=== PATIENT | male | born 1980 | race Caucasian/White ===

== ENCOUNTER 2016-12-08 01:00 | Emergency (ER) | payer OTHER ==
[2016-12-08 01:32] VITALS: BP 125/76; PULSE 91; RESP 16; TEMP 99.6; O2SAT 98
[2016-12-08] MEDS ORDERED: Sodium Chloride 0.9% 1,000 ML IV STA (02:05)
[2016-12-08 02:23] LABS: BASO % 0.3 % (0.0-2.0); EOS # 0.2 K/uL (0.0-0.7); EOS % 1.4 % (0.0-4.0); HEMATOCRIT 48.3 % (35.0-51.0); LYMPH # 1.8 K/uL (1.0-4.3); LYMPH % 11.8 % (20.0-40.0); MEAN CELL VOLUME 81.1 fl (80.0-94.0); MEAN CORPUSCULAR HEMOGLOBIN 27.2 pg (27.0-31.0); MEAN CORPUSCULAR HGB CONC 33.6 g/dL (33.0-37.0); MEAN PLATELET VOLUME 8.3 fl (7.2-11.7); MONO # 0.8 K/uL (0.0-0.8); MONO % 5.1 % (0.0-10.0); NEUT # 12.1 K/uL (1.8-7.0); NEUT % 81.4 % (50.0-75.0); NRBC % 0.1 % (0.0-0.0); WHITE BLOOD COUNT 14.9 K/uL (4.8-10.8)
[2016-12-08 02:31] LABS: CHLORIDE 102 mmol/L (98-107); SODIUM 141 mmol/l (132-148)
[2016-12-08 02:32] LABS: POTASSIUM 4.1 MMOL/L (3.6-5.0)
[2016-12-08 02:34] LABS: ALB/GLOB RATIO 1.2 (1.0-2.1); ALKALINE PHOSPHATASE 101 U/L (38-126); ALT/SGPT 98 U/L (21-72); AST/SGOT 50 U/L (17-59); BILIRUBIN,TOTAL 1.1 mg/dl (0.2-1.3); BLOOD UREA NITROGEN 16 mg/dl (9-20); CALCIUM 9.4 mg/dL (8.4-10.2); CARBON DIOXIDE 25 mmol/L (22-30); GFR AFRICAN-AMERICAN > 60; GLUCOSE,RANDOM 110 mg/dL (75-110); LIPASE 70 U/L (23-300); TOTAL PROTEIN 8.7 G/DL (6.3-8.2)
--- NOTE | 2016-12-08 02:47 | ED PDOC ---
HPI: Abdomen Time Seen by Provider: 12/08/16 01:20 Chief Complaint (Nursing): GI Problem Chief Complaint (Provider): abd pain, n/v, dizziness History Per: Patient History/Exam Limitations: no limitations Onset/Duration Of Symptoms: Hrs (2) Outside of [place] travel?: No Current Symptoms Are (Timing): Still Present Additional Complaint(s): 36yo male with no PMHx presents to the ED with c/o upper abdominaldiscomfort with associated n/v, dizziness, weakness x 2 hours. Patient states he feels dizzy when he moves his head or changes positions. Notes he has had similar symptoms in the past and went to the ED where he was given medications and felt better after. Denies fever, cough, SOB, chest pain. Past Medical History Reviewed: Historical Data, Nursing Documentation, Vital Signs Vital Signs: Last Vital Signs Temp 99.6 F 12/08/16 01:28 Pulse 91 H 12/08/16 01:28 Resp 16 12/08/16 01:28 BP 125/76 12/08/16 01:28 Pulse Ox 98 12/09/16 11:04 - Medical History PMH: No Chronic Diseases - Surgical History Surgical History: No Surg Hx - Family History Family History: States: No Known Family Hx - Social History Current smoker - smoking cessation education provided: Yes (occasional ) Alcohol: None Drugs: Denies - Home Medications Home Medications: Ambulatory Orders Medication Instructions Recorded Ondansetron ODT [Zofran ODT] 4 mg PO Q6H PRN #16 odt 02/14/15 traMADol [Ultram] 50 mg PO Q6 #16 tab 02/14/15 Meclizine [Meclizine*] 25 mg PO Q6 PRN #10 tab 12/08/16 - Allergies Allergies/Adverse Reactions: Allergies Allergy/AdvReac Type Severity Reaction Status Date / Time No Known Allergies Allergy Verified 12/08/16 01:27 Review of Systems ROS Statement: Except As Marked, All Systems Reviewed And Found Negative Constitutional: Positive for: Weakness. Negative for: Fever Cardiovascular: Negative for: Chest Pain Respiratory: Negative for: Cough, Shortness of Breath Gastrointestinal: Positive for: Nausea, Vomiting, Abdominal Pain Neurological: Positive for: Dizziness Physical Exam - Reviewed Nursing Documentation Reviewed: Yes Vital Signs Reviewed: Yes - Physical Exam Appears: Positive for: Well, No Acute Distress Head Exam: Positive for: ATRAUMATIC, NORMAL INSPECTION, NORMOCEPHALIC Skin: Positive for: Normal Color, Warm, Dry ENT: Positive for: Normal ENT Inspection Neck: Positive for: Normal, Painless ROM, Supple Cardiovascular/Chest: Positive for: Regular Rate, Rhythm. Negative for: Murmur , Tachycardia Respiratory: Positive for: Normal Breath Sounds. Negative for: Wheezing, Respiratory Distress Gastrointestinal/Abdominal: Positive for: Normal Exam (no RUq tend), Soft. Negative for: Tenderness Back: Positive for: Normal Inspection. Negative for: L CVA Tenderness, R CVA Tenderness Extremity: Positive for: Normal ROM. Negative for: Deformity, Swelling Neurologic/Psych: Positive for: Alert, manufacturing project manager II-XII (intact ), Oriented. Negative for: Motor/Sensory Deficits, Aphasia, Facial Droop - Laboratory Results Result Diagrams: 12/08/16 02:10 12/08/16 02:10 - ECG O2 Sat by Pulse Oximetry: 98 Pulse Ox Interpretation: Normal (RA) - Critical Care Total Time (In Min): 30 Medical Decision Making Medical Decision Makin: Impression: dizziness consistent with vertigo Plan: Labs Meclizine 25mg PO, Pepcid 20mg IVP, Zofran 4mg IV, IVF reassess CT head: FINDINGS: Brain:Mild volume loss.No hemorrhage. No significant white matter disease. No edema. Ventricles: Unremarkable. No ventriculomegaly. Bones/joints: Unremarkable. No acute fracture. Soft tissues: Unremarkable. Sinuses: Unremarkable as visualized. No acute sinusitis. Mastoid air cells: Unremarkable as visualized. No mastoid effusion. IMPRESSION: No intracranial hemorrhage. Please see discussion above. 0645: Patient feels better after meclizine and is stable for d/c. Dx is vertigo and Rx for meclizine given. Advised f/u w/ PCP in 1-2 days as well as ENT specialist. Instructed to return to the ED should he experience worsening or concerning symptoms. 07:07 Zofran is being ordered as RX as well as meclizine Scribe Attestation: Documented by Tae Ramsay acting as a scribe for Mary Jama MD. Provider Scribe Attestation: All medical record entries made by the Scribe were at my direction and personally dictated by me. I have reviewed the chart and agree that the record accurately reflects my personal performance of the history, physical exam, medical decision making, and the department course for this patient. I have also personally directed, reviewed, and agree with the discharge instructions and disposition. Disposition - Clinical Impression Clinical Impression: Vertigo - Patient ED Disposition Is Patient to be Admitted: No Counseled Patient/Family Regarding: Studies Performed, Diagnosis, Need For Followup - Disposition Referrals: [facility] [Outside] [facility] [Outside] Edward Gonzalez MD [Staff Provider] - Disposition: Routine/Home Disposition Time: 06:30 Condition: IMPROVED Additional Instructions: follow up with your primary doctor in 1-2 days return to ED with any worsening or concerning symptoms. Prescriptions: Meclizine [Meclizine*] 25 mg PO Q6 PRN #10 tab PRN Reason: Dizziness Instructions: Vertigo (ED)
--- NOTE | 2016-12-08 09:50 | CT ---
PROCEDURE: CT HEAD WITHOUT CONTRAST. HISTORY: headache COMPARISON: None available. TECHNIQUE: Axial computed tomography images were obtained through the head/brain without intravenous contrast. Radiation dose: Total exam DLP = 850.41 mGy-cm. This CT exam was performed using one or more of the following dose reduction techniques: Automated exposure control, adjustment of the mA and/or kV according to patient size, and/or use of iterative reconstruction technique. FINDINGS: HEMORRHAGE: No acute parenchymal, subarachnoid nor extra-axial hemorrhage. . BRAIN: No mass effect or edema. No atrophy or chronic microvascular ischemic changes. Mild generalized volume loss VENTRICLES: Unremarkable. No hydrocephalus. CALVARIUM: Unremarkable. PARANASAL SINUSES: Unremarkable as visualized. No significant inflammatory changes. MASTOID AIR CELLS: Unremarkable as visualized. No inflammatory changes. OTHER FINDINGS: None. IMPRESSION: No acute intracranial hemorrhage. Mild generalized volume loss
== END 2016-12-08 07:10 | disposition home or self-care (01) ==
LOC: H.ER 01:00
DX: R42 Dizziness and giddiness (principal)
CPT/HCPCS: 70450; 80053; 83690; 85025; 96361; 96374; 96375; 99283; J2405; J7040